=== PATIENT | male | born 1985 | race Two or more races ===

== ENCOUNTER 2024-12-04 06:44 | Day surgery (SDC) | payer OTHER ==
[2024-12-04] MEDS ORDERED: DIPHENHYDRAMINE HCL 50 MG/ML VIAL 1ML IV ONE (09:45)
[2024-12-04] MEDS ORDERED: ONDANSETRON HCL 2 MG/ML VIAL IV ONE (09:45)
[2024-12-04] MEDS ORDERED: MIDAZOLAM HCL 2 MG/2 ML VIAL IV ONE (09:45)
[2024-12-04] MEDS ORDERED: fentaNYL CITRATE 50 MCG/ML AMPUL IV PUSH ONE (09:45)
[2024-12-04] MEDS ORDERED: FLUMAZENIL 0.5 MG/5 ML ML IV STA (10:05)
== END 2024-12-04 11:05 | disposition home or self-care (01) ==
LOC: AMB-ENDOS 06:44
PROVIDERS: ATTEND Colon & Rectal Surgery
DX: K57.30 Diverticulosis of large intestine without perforation or abscess without bleeding (principal); K64.8 Other hemorrhoids; K62.5 Hemorrhage of anus and rectum; R19.4 Change in bowel habit